=== PATIENT | female | born 1985 | race Caucasian/White ===

== ENCOUNTER → 2020-10-11 15:48 | Outpatient (ROUT) | payer OTHER, SELFPAY ==
[2020-10-11 16:02] LABS: Hematocrit 35.1 % (36-46); Hemoglobin 11.9 g/dL (12.0-16.0); Mean Corpuscular HGB Conc 33.8 % (30-36); Mean Corpuscular Hemoglobin 32.5 PG (26-34); Mean Corpuscular Volume 96.1 fL (80-100); Platelet Count 199 X10^3/uL (150-400); Red Blood Cell Count 3.66 X10^6/uL (4.0-5.2); Red Cell Distribution Width 12.3 % (11.6-14.8); White Blood Cell Count 6.7 X10^3/uL (4.5-11.0)
[2020-10-11 16:11] LABS: GTT (PREG) 1 Hour PP 50gm Dose 119 mg/dL (76-139)
== END ==
PROVIDERS: Visit Provider Nurse Practitioner Obstetrics & Gynecology
DX: Z34.90 Encounter for supervision of normal pregnancy, unspecified, unspecified trimester (principal); Z13.1 Encounter for screening for diabetes mellitus; Z3A.26 26 weeks gestation of pregnancy
CPT/HCPCS: 82950; 85027

== ENCOUNTER → 2020-12-06 16:25 | Outpatient (ROUT) | payer OTHER, SELFPAY | PROVIDERS: Visit Provider Nurse Practitioner Obstetrics & Gynecology | DX: Z34.90 Encounter for supervision of normal pregnancy, unspecified, unspecified trimester (principal); Z36.85 Encounter for antenatal screening for Streptococcus B; Z3A.36 36 weeks gestation of pregnancy | CPT/HCPCS: 87081 ==

== ENCOUNTER 2020-12-27 22:01 | Inpatient (IN) | payer OTHER, SELFPAY ==
--- NOTE | 2020-12-27 22:12 | P.HPOB_ITS ---
OB HPI Date/Time Date of admission: 12/27/20 Date Patient Seen: 12/27/20 Time Patient Seen: 22:00 History of Present Condition Chief complaint: : 3 Para: 1 Estimated Date of Delivery: 12/31/20 Estimated Gestational Age (weeks): 39.3 Narrative: Marilyn Manzano is a 35 year old female @ [id number] by lMP and early US who presents for evaluation of labor. Contraction started around 8pm and steadily progressed in frequency and intensity. +FM. No Vb or LOF. Desires low intervention, unmedicated . Uncomplicated PN care w/ CNM. , Maco, is getting their 2YO, William, situated with their aunt and will be here soon for support. History of Present care: good care, initiated at week # (11), number of visits (8) and pounds weight gain (31) Dating criteria: LMP confirmed by 1st trimester US Ultrasounds: normal mid trimester US and abnormal US findings (mild renal pyelectasis resolved at 32wks) Obstetrical complications: none Medical complications: none Preadmission Labs Blood type: O (+) positive -: Antibody screen: negative, GBS status: negative, HBsAG: negative and RPR/VDLR: negative -: Rubella: immune HCT: 35.1 HCAB: negative PAP: Normal 1 hr GTT: 119 Prior (ies) History: 02/01/2018: SAB @ 11wks 03/09/2019: NSVB @ 41wks, male, 8#7oz, male, unmedicated, uncomplicated Evaluation Evaluation Baseline heart rate: 130 Variability: Moderate (11-25) monitor accelerations: Present monitor decelerations: Absent Contraction Frequency (minutes): 3 Uterine Contraction Intensity: Moderate Status: Category l Cervical dilation (cm): 9 Cervical effacement (%): 100 station: -1 PFSH Family History (Updated 12/27/20 @ 22:22 by Candice Goetz CNM) Father Thyroid disorder Social History Smoking Status: Never smoker Meds Home Medications and Allergies Home Medications Medication Instructions Recorded Confirmed Type No Known Home Medications 12/27/20 12/27/20 History Allergies Allergy/AdvReac Type Severity Reaction Status Date / Time No Known Drug Allergies Allergy Verified 12/27/20 22:45 Review of Systems Review of Systems ROS: Yes All systems reviewed with the patient and are negative except as otherwise documented Constitutional Constitutional: Reports weakness Comments: Feeling shakey and weak Gastrointestinal Gastrointestinal: Reports nausea Neurologic Neurologic: Reports weakness Exam Vital Signs (past 8 hours): BP 131/68, HR 70, T 36.1C Temporal Resp Effort & Inspection: normal respiratory effort Auscultation: clear to auscultation bilaterally Cardio Rate: regular rate Rhythm: regular rhythm Heart Sounds: S1 normal and S2 normal Presentation: vertex Objective Labs Result Diagrams: 12/27/20 22:34 Assessment and Plan Assessment and Plan Assessment and Plan narrative: A: Term primipara Active labor No indication for GBS prophylaxis Cat I FHR P: Admit routine orders. Complete 20 minutes of continuous EFM and then may s witch to IA, if Cat I. Labor support PRN. Reassess in 4 hours or sooner, PRN.
[2020-12-27 22:39] VITALS: BP 131/68
[2020-12-27 22:54] LABS: Add Manual Diff / Slide Review NO; Basophils Absolute Auto 100 /uL (0-100); Basophils Percent Auto 0.9 % (0-2); Eosinophils Absolute Auto 100 /uL (0-450); Eosinophils Percent Auto 0.6 % (2-4); Hematocrit 32.2 % (36-46); Lymphocytes Absolute Auto 1400 /uL (1100-4500); Lymphocytes Percent Auto 10.8 % (25-40); Mean Corpuscular Hemoglobin 31.9 PG (26-34); Mean Corpuscular Volume 93.9 fL (80-100); Monocytes Absolute Auto 800 /uL (0-900); Monocytes Percent Auto 6.4 % (3-14); Neutrophils Absolute Auto 10400 /uL (1500-7000); Neutrophils Percent Auto 81.3 % (50-75); Platelet Count 188 X10^3/uL (150-400); Red Blood Cell Count 3.43 X10^6/uL (4.0-5.2); Red Cell Distribution Width 12.9 % (11.6-14.8); White Blood Cell Count 12.7 X10^3/uL (4.5-11.0)
[2020-12-27 23:19] LABS: COVID19 - ADMIT (NP swab/PCR) Negative (Negative)
--- NOTE | 2020-12-28 00:04 | PM.OBPRVD ---
Labor & Delivery Delivery date: 12/27/20 Intrapartal Events: None Cervical ripening method: none Induction method: none Delivery monitor: external FHT (doppler) and external uterine Route of delivery: L&D Laceration Description: None Estimated blood loss (mL): 500 Anesthesia Type: None Narrative: Patient labored well without interventions. Spontaneous urge to push led to slow descent of vertex until patient was assisted into squatting position where rapid descent was made. Moderate vaginal bleeding with clots was noted during second stage w/ reassuring FHR by intermittent auscultation. Patient was assisted to bed in left side lying position for NSVB of a vigorous baby boy in CATHI position w/ a single loose nuchal cord reduced on the perineum. Sisters was lifted to maternal abdomen by both parents. 30 units of pitocin in 500mL LR was started at 300mL/hr for AMTSL. After cessation of pulsation, the cord was double clamped by CNM and cut by FOB. Hospital cord blood sample was collected. Gentle cord traction and single maternal push led to spontaneous, Schultze delivery of an apparently intact placenta, membranes and 3VC. Fundus immediately firm and bleeding minimal. Vagina and perineum inspected and intact. QBL 500mL. Both mother and baby stable and skin to skin as I left the room. Sisters Baby 1: Infant gender: Male Presentation: vertex Position: Left Occiput Anterior Placenta delivery description: Spontaneous Cord Vessel Description: 3 Vessels and Loose score (1 min): 8 score (5 min): 9 weight: 3.4 kg Plan for aftercare: Routine care
[2020-12-28] MEDS: KETOROLAC 30 MG/ML VIAL IV (00:59)
[2020-12-28] MEDS: IBUPROFEN 600 MG TABLET PO (06:50)
[2020-12-28 15:08] VITALS: BP 131/68; PULSE 70; RESP 16; TEMP 36.9
--- NOTE | 2020-12-28 17:21 | PM.OBDS.1 ---
Discharge Providers Provider Date of admission: 12/27/20 22:01 Discharge Date: 12/28/20 Consults: 12/29/20 00:11 Consult to [employer] [employer] Routine Comment: Discharge provider: Candice Goetz CNM Summary Discharge Diagnosis (1) Encounter for full-term uncomplicated delivery: Status: Acute Problem Details: Patient eager for discharge to home tonight. , voiding and ambulating independently. Tolerating general diet. Minimal pain, has declined PO pain medication. Vaginal bleeding is light, no clots. Time Spent with Patient Time attestation: Total time spent providing and/or coordinating discharge services: Objective Labs Result Diagrams: 12/27/20 22:34 Labs: Laboratory Results - last 24 hr 12/27/20 12/27/20 12/27/20 22:10 22:34 22:34 WBC 12.7 H RBC 3.43 L Hgb 11.0 L Hct 32.2 L MCV 93.9 MCH 31.9 MCHC 34.0 RDW 12.9 Plt Count 188 Neut % (Auto) 81.3 H Lymph % (Auto) 10.8 L [place] % (Auto) 6.4 Eos % (Auto) 0.6 L Baso % (Auto) 0.9 Neut # (Auto) 68346 H Lymph # (Auto) 1400 [place] # (Auto) 800 Eos # (Auto) 100 Baso # (Auto) 100 SARS-CoV-2 (PCR) Negative Blood Type O Positive Antibody Screen Negative Exam Vital Signs (past 8 hours): - 12/28/20 15:08 Temperature 98.4 F Pulse Rate 70 Respiratory Rate 16 Blood Pressure 131/68 Other: Fundus firm @ u-1, lochia light/small, no clots. Perineum intact. Psych Appearance: grossly normal Affect: normal affect Discharge Plan Discharge Plan Patient Disposition: Home Discharge orders & Medications Prescriptions: New ibuprofen 600 mg Tablet 600 mg PO Q6HR PRN (Reason: Pain, Mild (1-3)) 14 Days Qty: 60 RF: 0 Follow up/Referrals: Candice Goetz CNM [[facility]] - (Follow up by Telehealth 01/09/21 @ 11am Follow-up in office 02/07/21 @ 2pm) Diet/Activity/Treatments Diet: Diet as Tolerated Activity: pelvic rest x 6 weeks Skin/Wound/Dressing Care Report to your healthcare provider any signs of infection, such as:: chills, fever, increased pain, unusual drainage and unusual redness Visit Report/Discharge Packet Stand Alone Forms: Discharge: Care
== END 2020-12-28 18:35 | disposition home or self-care (01) | DRG 807 ==
PROVIDERS: Admitting Provider Nurse Practitioner Obstetrics & Gynecology; Referring Provider Nurse Practitioner Obstetrics & Gynecology; Visit Provider Nurse Practitioner Obstetrics & Gynecology
DX: O69.81X0 Labor and delivery complicated by cord around neck, without compression, not applicable or unspecified (principal); Z37.0 Single live birth; Z3A.39 39 weeks gestation of pregnancy; Z20.822 Contact with and (suspected) exposure to COVID-19
CPT/HCPCS: 36415; 59050; 85025; 86850; 86900; 86901; 87635; G0379; J1885